=== PATIENT | male | born 1980 | race Caucasian/White ===

== ENCOUNTER → 2017-05-16 | Outpatient (CLI) | payer OTHER ==
[~2017-05-16] MED LIST: BACTROBAN2% TP; DICLOFENAC 50MG50 MG PO; KEFLEX500 M1 PO
[2017-05-16 10:01] LABS: HEMOGLOBIN 15.6 g/dL (14.1-18.0); LYMPH # 2.9 K/mm3 (0.7-4.5)
--- NOTE | 2017-05-16 10:38 | RADIOLOGY REPORT PS360 ---
CHEST(2 VIEWS-NOT PORTABLE) HISTORY: CHEST PAIN, FATIGUE, PARASTHESIA ORDERING PHYSICIAN: Tommy Flores MD PATIENT AGE: 37 years COMPARISON: None available FINDINGS: The cardiomediastinal silhouette and pulmonary vascularity are within normal limits. The lungs are clear without infiltrates, suspicious nodules, or pleural effusions. No acute bony abnormalities. IMPRESSION: Negative chest, no acute finding
[2017-05-16 10:45] LABS: NEUTROPHILS 32 % (42-76)
[2017-05-16 10:57] LABS: BUN 14 mg/dL (7-18)
[2017-05-16 11:13] LABS: GFR (ESTIMATED) 75 ML/MIN (>60)
[2017-05-17 08:37] LABS: Folate (Folic Acid) 6.6 ng/mL (>3.0)
== END ==
LOC: LAB 09:34 → RAD 09:34
PROVIDERS: Family Medicine
DX: R07.9 Chest pain, unspecified (principal); R53.83 Other fatigue; R20.2 Paresthesia of skin

== ENCOUNTER 2017-05-27 14:58 | Emergency (ER) | payer OTHER ==
[~2017-05-27] VITALS: Ht 180.3 cm; Wt 88.5 kg
--- NOTE | 2017-05-27 15:30 | Urgent Treatment Center Report ---
History of Present Issue Date/Time Seen by Provider 05/27/17 1527 Visit Reason Pt arrived:Walked Presenting Problem:BODY ACHES, SORE THROAT AND H/A THAT STARTED LAST NIGHT. Location if Accident: Onset of symptoms date/time:/ or onset unknown for:MEDICAL HX UNKNOWN Have you (or family members/close friends) recently traveled outside the [place]? N If Yes, where/when: Have you had exposure to infectious disease within the past month? TB? Other? Specify: Patient state that he has not been feeling well for several days States that last night he continued to get worse and began to run a fever State that today he woke up and felt a little better and went to work and as the day went on he continued to feel worse so he came in to get checked State that he feels sore all over and his throat is raw and feels like he swallowed razer blades ALLERGIES Coded Allergies: No Known Allergies (11/09/16) History Medical History General CAD? No Angina: No PR: No Hypertension? No Hyperlipidemia? No CHF? No DVT? No PE? No COPD? No Asthma? No Anemia? No GERD? No Gastric ulcers? No GI Bleed? No Hernia? Yes Thyroid Problems? No Hypothyroidism? No CVA? No Seizures? No Diabetes? No Renal Insuffiency? No UTI? No Stones? No GB Disease: No Nephritic Syndrome? No Asplenia? No Hepatitis? No Sickle Cell Disease? No Arthritis? No Migraines? No Cataracts? No Glaucoma? No MRSA? No HIV? No TB? No Anxiety? No Depression? No Cancer? No More? No Immunization HX DT/Tetanus 2016 Surgical Hx Previous Surgery?Y HERNIA REPAIR Social History Smoking Hx Smoker: Never Smoker Tobacco: No Alcohol Alcohol: No Review of Systems All Other Systems Reviewed and Negative ENT ear pain, throat pain, throat swelling. Respiratory cough Musculoskeletal other (body aches) Physical Exam Vital Signs Vital Signs Date Time Temp Pulse Resp B/P Pulse O2 O2 Flow FiO2 Ox Delivery Rate 05/27 1502 97.9 82 20 132/89 98 General Appearance normal appearance, WD/WN, no apparent distress Ear, Nose, Throat tonsillar swelling, Throat red, blisters noted, drainage noted in back of throat Respiratory Status Yes: trachea midline, chest symmetrical, non tender chest. No: respiratory distress. Cardiovascular normal exam, regular rate/rhythm, no peripheral edema, no gallop Neurologic alert, change management specialist II-XII nml as tested, normal exam, no motor/sensory deficits, oriented x 3 Medical Decision Making LABS/Meds/Orders Pt receiving controlled substance in ED? No Results/Orders Laboratory Tests 05/27/17 1506: Group A Strep Screen NOT DETECTED Orders Procedure Date/time Status [facility] STREP SCREEN 05/27 1506 Complete Departure Departure Time of Disposition 1530 Disposition DC Home or Self Care(routine) Clinical Impression Primary Impression: Upper respiratory infection Qualifiers: URI type: acute tonsillitis Pharyngitis/tonsillitis etiology: unspecified etiology Qualified Code: J03.90 - Acute tonsillitis, unspecified Condition STABLE Referrals Mark RITCHIE,Tommy Dowell (Family) Patient Instructions Sore Throat Additional Instructions * Monitor Temp. Tylenol and/or Ibuprofen as needed. ER if fever is no less than 101 despite alternating Tylenol and Ibuprofen * Encourage fluids, water, Gatorade, powerade, pedialyte if infant/toddler/or child * Warm salt water gargles for throat irritation *Warm fluids *Sore throat lozenges *Sleep elevated Discharge Counseling Counseled pt/family regarding diagnosis, medications/RX, home care, follow up needs Prescriptions Current Visit Scripts CEFDINIR (Cefdinir) 300 MG PO BID #[id number] CAP at 1531
--- NOTE | 2017-05-27 15:30 | Urgent Treatment Center Report ---
History of Present Issue Date/Time Seen by Provider 05/27/17 1527 Visit Reason Pt arrived:Walked Presenting Problem:BODY ACHES, SORE THROAT AND H/A THAT STARTED LAST NIGHT. Location if Accident: Onset of symptoms date/time:/ or onset unknown for:MEDICAL HX UNKNOWN Have you (or family members/close friends) recently traveled outside the [place]? N If Yes, where/when: Have you had exposure to infectious disease within the past month? TB? Other? Specify: Patient state that he has not been feeling well for several days States that last night he continued to get worse and began to run a fever State that today he woke up and felt a little better and went to work and as the day went on he continued to feel worse so he came in to get checked State that he feels sore all over and his throat is raw and feels like he swallowed razer blades ALLERGIES Coded Allergies: No Known Allergies (11/09/16) History Medical History General CAD? No Angina: No DE: No Hypertension? No Hyperlipidemia? No CHF? No DVT? No PE? No COPD? No Asthma? No Anemia? No GERD? No Gastric ulcers? No GI Bleed? No Hernia? Yes Thyroid Problems? No Hypothyroidism? No CVA? No Seizures? No Diabetes? No Renal Insuffiency? No UTI? No Stones? No GB Disease: No Nephritic Syndrome? No Asplenia? No Hepatitis? No Sickle Cell Disease? No Arthritis? No Migraines? No Cataracts? No Glaucoma? No MRSA? No HIV? No TB? No Anxiety? No Depression? No Cancer? No More? No Immunization HX DT/Tetanus 2016 Surgical Hx Previous Surgery?Y HERNIA REPAIR Social History Smoking Hx Smoker: Never Smoker Tobacco: No Alcohol Alcohol: No Review of Systems All Other Systems Reviewed and Negative ENT ear pain, throat pain, throat swelling. Respiratory cough Musculoskeletal other (body aches) Physical Exam Vital Signs Vital Signs Date Time Temp Pulse Resp B/P Pulse O2 O2 Flow FiO2 Ox Delivery Rate 05/27 1502 97.9 82 20 132/89 98 General Appearance normal appearance, WD/WN, no apparent distress Ear, Nose, Throat tonsillar swelling, Throat red, blisters noted, drainage noted in back of throat Respiratory Status Yes: trachea midline, chest symmetrical, non tender chest. No: respiratory distress. Cardiovascular normal exam, regular rate/rhythm, no peripheral edema, no gallop Neurologic alert, pt escort II-XII nml as tested, normal exam, no motor/sensory deficits, oriented x 3 Medical Decision Making LABS/Meds/Orders Pt receiving controlled substance in ED? No Results/Orders Laboratory Tests 05/27/17 1506: Group A Strep Screen NOT DETECTED Orders Procedure Date/time Status [facility] STREP SCREEN 05/27 1506 Complete Departure Departure Time of Disposition 1530 Disposition DC Home or Self Care(routine) Clinical Impression Primary Impression: Upper respiratory infection Qualifiers: URI type: acute tonsillitis Pharyngitis/tonsillitis etiology: unspecified etiology Qualified Code: J03.90 - Acute tonsillitis, unspecified Condition STABLE Referrals Mark RITCHIE,Tommy Dowell (Family) Patient Instructions Sore Throat Additional Instructions * Monitor Temp. Tylenol and/or Ibuprofen as needed. ER if fever is no less than 101 despite alternating Tylenol and Ibuprofen * Encourage fluids, water, Gatorade, powerade, pedialyte if infant/toddler/or child * Warm salt water gargles for throat irritation *Warm fluids *Sore throat lozenges *Sleep elevated Discharge Counseling Counseled pt/family regarding diagnosis, medications/RX, home care, follow up needs Prescriptions Current Visit Scripts CEFDINIR (Cefdinir) 300 MG PO BID #[id number] CAP at 1531
[2017-05-27 15:33] VITALS: BP 132/89
== END 2017-05-27 15:35 | disposition home or self-care (01) ==
LOC: UTC 14:58
DX: J03.90 Acute tonsillitis, unspecified (principal)

== ENCOUNTER → 2017-06-26 | Outpatient (CLI) | payer OTHER ==
[~2017-06-26] MED LIST changes: +OMNICEF 300 MG300 MG PO
== END ==
LOC: SL 15:18
DX: R06.83 Snoring (principal); R53.83 Other fatigue